=== PATIENT | female | born 1985 | race Two or more races ===

== ENCOUNTER 2017-12-08 08:08 | Day surgery (SDC) | payer BC ==
[~2017-12-08 08:08] MED LIST: Bupivacaine 0.25% 10 ML SDV ONE; Glycopyrrolate 0.2 MG/ML SDV ONE; Ketorolac 30 MG/ML SDV ONE; Lactated Ringers 1,000 ML IV SCH; Lidocaine 2% 5 ML SDV ONE; Midazolam 1 MG/ML 2 ML SDV ONE; Ondansetron 4 MG/2 ML SDV ONE; Propofol 200 MG/20 ML SDV ONE; Rocuronium 10 MG/ML 10 ML Syringe ONE; Sodium Chloride 0.9% 10 ML Syringe FLUSH PRN; Sodium Chloride 0.9% 2.5 ML Syringe FLUSH PRN; Sugammadex Sodium 200 MG/2 ML VIAL ONE; fentaNYL 100 MCG/2 ML SDV ONE
--- NOTE | 2017-12-08 08:30 | PCM.PREANE ---
Preanesthetic Assessment - Anesthesia/Transfusion/Family Hx Anesthesia History: Prior Anesthesia Without Reaction Family History of Anesthesia Reaction: No Transfusion History: Prior Transfusion Without Reaction Intubation History: Unknown - Review of Systems General: No Symptoms Pulmonary: No Symptoms Cardiovascular: No Symptoms Gastrointestinal: Abdominal Pain (pelvic pain) Neurological: No Symptoms Other: Reports: None - Physical Assessment Height: 1.59 m Weight: 82.1 kg ASA Class: 2 Mental Status: Alert & Oriented x3 Airway Class: Mallampati = 2 Dentition: Reports: Normal Dentition Thyro-Mental Finger Breadths: 3 Mouth Opening Finger Breadths: 3 ROM/Head Extension: Full Lungs: Clear to Auscultation, Normal Respiratory Effort Cardiovascular: Regular Rate, Regular Rhythm - Allergies Allergies/Adverse Reactions: Allergies Allergy/AdvReac Type Severity Reaction Status Date / Time No Known Allergies Allergy Verified 12/04/17 10:34 - Blood Blood Available: No - Anesthesia Plan Pre-Op Medication Ordered: None - Acknowledgements Anesthesia Type Planned: General Anesthesia Pt an Appropriate Candidate for the Planned Anesthesia: Yes Alternatives and Risks of Anesthesia Discussed w Pt/Guardian: Yes Pt/Guardian Understands and Agrees with Anesthesia Plan: Yes PreAnesthesia Questionnaire Gastrointestinal History: Reports: Other (See Below) Other Gastrointestinal History: occasional heartburn Genitourinary History: Reports: None SPORTS CLERK History: Reports: Endocrine/Metabolic History: Reports: Obesity/BMI 30+ Hematologic History: Reports: Blood Transfusion(s), Other (See Below) Other Hematologic History: blood transfusion following first delivery for post bleed - Past Surgical History Head Surgeries/Procedures: Reports: None GI Surgical History: Female Surgical History: Reports: Tubal Ligation - SUBSTANCE USE Smoking Status *Q: Never Smoker Recreational Drug Use History: No - HOME MEDS Home Medications: Home Meds . [No Known Home Meds] 12/04/17 [History] - CURRENT (IN HOUSE) MEDS Current Meds: Current Medications Lactated Ringer's (Ringers, Lactated) 1,000 mls @ 125 mls/hr IV ASDIRECTED SJ Sodium Chloride (Saline Flush) 10 ml FLUSH ASDIRECTED PRN PRN Reason: Keep Vein Open Sodium Chloride (Saline Flush) 2.5 ml FLUSH ASDIRECTED PRN PRN Reason: Keep Vein Open Discontinued Medications Bupivacaine HCl (Sensorcaine-Mpf 0.25%) Confirm Administered Dose 20 ml .ROUTE .ST-MED ONE Stop: 12/08/17 07:30 Fentanyl (Sublimaze) Confirm Administered Dose 100 mcg .ROUTE .ST-MED ONE Stop: 12/08/17 07:43 Glycopyrrolate (Robinul) Confirm Administered Dose 0.2 mg .ROUTE .STK-MED ONE Stop: 12/08/17 07:45 Ketorolac Tromethamine (Toradol) Confirm Administered Dose 30 mg .ROUTE .ST- MED ONE Stop: 12/08/17 07:45 Lidocaine (Xylocaine-Mpf 2%) Confirm Administered Dose 5 ml .ROUTE .ST-MED ONE Stop: 12/08/17 07:45 Midazolam HCl (Versed 1 Mg/Ml) Confirm Administered Dose 2 mg .ROUTE .ST-MED ONE Stop: 12/08/17 07:43 Ondansetron HCl (Zofran) Confirm Administered Dose 4 mg .ROUTE .ST-MED ONE Stop: 12/08/17 07:45 Propofol (Diprivan 20 Ml) Confirm Administered Dose 200 mg .ROUTE .ST-MED ONE Stop: 12/08/17 07:43 Rocuronium Bowler (Zemuron) Confirm Administered Dose 100 mg .ROUTE .ST-MED ONE Stop: 12/08/17 07:45
[2017-12-08] MEDS ORDERED: fentaNYL 100 MCG/2 ML SDV ONE (10:03)
[2017-12-08] MEDS ORDERED: Lactated Ringers 1,000 ML IV SCH (10:45)
[2017-12-08] MEDS ORDERED: Acetaminophen/oxyCODONE 325-5 MG Tab PO PRN (10:45)
--- NOTE | 2017-12-08 10:53 | PCM.OPNOTE ---
- General Post-Op/Procedure Note Date of Surgery/Procedure: 12/08/17 Operative Procedure(s): Diagnsostic Laparoscopy Findings: External genitalia- small window within the left labia minora Normal 7 weeks anteverted uterus, mobile, sounded to 8cm. Normal ovaries and tubes bilaterally. No adnexal masses. No endometriosis seen. Pre Op Diagnosis: Pelvic pain Post-Op Diagnosis: Same Anesthesia Technique: General ET Tube Primary Surgeon: Tanya Anderson Immigration Case Worker: Shruthi Urbina (Medical Student) Fluid Replacement, Intraop: 800 EBL in mLs: 5 Complications: None Condition: Good
--- NOTE | 2017-12-08 23:55 | OR ---
SURGEON: Tanya Anderson MD SWEEPING COMPOUND BLENDER: Macrina Urbina MS IV DATE OF PROCEDURE: 12/08/2017 PREOPERATIVE DIAGNOSIS: Pelvic pain. POSTOPERATIVE DIAGNOSIS: Pelvic pain. PROCEDURE: Diagnostic laparoscopy. ANESTHESIA: General endotracheal. ESTIMATED BLOOD LOSS: Minimal. IV FLUIDS: 1000 mL, crystalloid. COMPLICATIONS: None. DISPOSITION: Stable to recovery room. FINDINGS: Seven weeks mobile anteverted uterus sounded to 8 cm. Normal uterus, tubes, and ovaries. No endometriosis was visualized. A small window was noticed the left labia minora most likely resultant from a obstetric injury. INDICATION: The patient is a 32-year-old, P4, who presented for evaluation with complaints of long-standing and worsening lower abdominal/pelvic pain. The patient had been referred for evaluation for possible endometriosis. Declining any medical management, she preferred to proceed with a diagnostic laparoscopy for a definite diagnosis of a possible endometriosis. The risks of the procedure were discussed extensively with her including, but not limited to infection, injury to blood vessels, bowel. Understanding all these risks, she opted to proceed. Appropriate surgical consent was obtained. DESCRIPTION OF PROCEDURE: The patient was taken to the operating room, where induction of general anesthesia was performed without difficulty. After adequate level of anesthesia, she was placed in dorsal lithotomy position, prepped and draped in a normal sterile fashion for laparoscopic surgery. SCDs were in place. Appropriate time-out was held. A bivalve speculum was placed in the vagina, and the anterior lip of the cervix was grasped with an Allis clamp, and Zumi uterine manipulator was placed into the uterine cavity. The Allis clamp and the bivalve speculum were removed from the patient's vagina. The surgeon's gloves were changed and attention was turned to the patient's abdomen. The infraumbilical region was infiltrated with 0.25% Marcaine and a 5-mm skin incision was then made with a scalpel along old incision (patient had interval tubal ligation). Tenting the anterior abdominal wall up, Veress needle was introduced into the abdominal cavity and CO2 insufflation was commenced to develop an adequate pneumoperitoneum of 15 mmHg. A 5 mm port was then placed and the laparoscope was introduced into the abdominal cavity confirming the correct placement. Survey of the abdominal cavity was performed including the upper abdomen, which was all normal. Two additional ports were then placed 2 cm medial and cephalad from the anterior superior iliac spine on the right and the left sides. The 5 mm ports were inserted into these areas. Lifting the uterus out of the pelvis and I then went ahead to perform evaluation of the pelvis starting from the anterior cul-de-sac and then to the left side, evaluating the left ovary, the left ovarian fossa, all the way down into the posterior cul-de-sac, evaluating the uterosacral ligaments bilaterally, the posterior wall of the uterus, and then sweeping towards the right side, evaluating the right ovarian fossa, the right ovary, and the fallopian tubes, the broad ligaments and round ligaments on both sides. No abnormalities, endometriotic deposits, or lesions suspicious of endometriosis were visualized. The pelvis looked completely normal. With no pelvic pathology found, the procedure was stopped. The abdomen was then desufflated. The lateral ports were removed under direct visualization, followed by the umbilical port.. The skin was closed with 4-0 Monocryl using subcuticular stitches. Attention was turned to the vagina, where the Zumi manipulator was removed, and the cervix was examined and the area where the Allis clamp was placed was found to be hemostatic. Final sponge, needle, and instrument counts were reported as correct. There were no known complications. The patient was transferred to the recovery room in a stable condition. MADELYN / ANJALI /[id number] IRVIN
== END 2017-12-08 12:45 | disposition home or self-care (01) ==
LOC: MW.SDS 08:08
PROVIDERS: ATTEND Obstetrics & Gynecology
DX: R10.2 Pelvic and perineal pain (principal); N90.89 Other specified noninflammatory disorders of vulva and perineum; E66.9 Obesity, unspecified
CPT/HCPCS: 36415; 49320; 84703; 85027; 86850; 86900; 86901; A9270; J1885; J2250; J2405; J3010; J7120; 00840; J2704